=== PATIENT | male | born 1950 | race African-American/Black ===

== ENCOUNTER 2017-03-18 13:26 | Emergency (ER) | payer MEDICARE, MEDICAID ==
[~2017-03-18] VITALS: Ht 165.1 cm; Wt 67.1 kg
[2017-03-18 15:00] VITALS: BP 147/80
== END 2017-03-18 16:00 | disposition home or self-care (01) ==
LOC: ER 13:26
DX: H57.11 Ocular pain, right eye (principal); I10 Essential (primary) hypertension; F17.210 Nicotine dependence, cigarettes, uncomplicated